=== PATIENT | female | born 1990 | race Hispanic/Latino ===

== ENCOUNTER 2018-10-11 18:23 | Emergency (ER) | payer OTHER ==
[2018-10-11 18:32] VITALS: O2SAT 100
[2018-10-11] MEDS ORDERED: Iohexol 240 (50 ml) PO STA (19:33)
[2018-10-11] MEDS ORDERED: Sodium Chloride 0.9% 1,000 ML IV STA (19:37)
--- NOTE | 2018-10-11 19:59 | ED PDOC ---
- Laboratory Results Result Diagrams: 10/11/18 20:58 10/11/18 20:58 Lab Results: Total Bilirubin 0.3 mg/dl (0.2-1.3) 10/11/18 20:58 AST 22 U/L (14-36) 10/11/18 20:58 ALT 31 U/L (9-52) 10/11/18 20:58 Alkaline Phosphatase 39 U/L (38-126) 10/11/18 20:58 Total Protein 7.6 G/DL (6.3-8.2) 10/11/18 20:58 Albumin 4.5 g/dL (3.5-5.0) 10/11/18 20:58 Globulin 3.1 gm/dL (2.2-3.9) 10/11/18 20:58 Albumin/Globulin Ratio 1.5 (1.0-2.1) 10/11/18 20:58 Amylase 98 U/L (30-110) 10/11/18 20:58 Lipase 59 U/L (23-300) 10/11/18 20:58 Urine Color Colorless (YELLOW) 10/11/18 20:58 Urine Clarity Clear (Clear) 10/11/18 20:58 Urine pH 7.0 (5.0-8.0) 10/11/18 20:58 Ur Specific [place] < 1.005 (1.003-1.030) 10/11/18 20:58 Urine Protein Negative mg/dL (NEGATIVE) 10/11/18 20:58 Urine Glucose (UA) Neg mg/dL (NEGATIVE) 10/11/18 20:58 Urine Ketones Negative mg/dL (NEGATIVE) 10/11/18 20:58 Urine Blood Trace (NEGATIVE) 10/11/18 20:58 Urine Nitrate Negative (NEGATIVE) 10/11/18 20:58 Urine Bilirubin Negative (NEGATIVE) 10/11/18 20:58 Urine Urobilinogen 0.2-1.0 mg/dL (0.2-1.0) 10/11/18 20:58 Ur Leukocyte Esterase Neg [place]/uL (Negative) 10/11/18 20:58 Urine RBC (Auto) 1 /hpf (0-3) 10/11/18 20:58 Urine Microscopic WBC < 1 /hpf (0-5) 10/11/18 20:58 Ur Squamous Epith Cells < 1 /hpf (0-5) 10/11/18 20:58 Urine Bacteria Rare (<OCC) 10/11/18 20:58 <Bentley Rascon - Last Filed: 10/12/18 00:13> - Laboratory Results Result Diagrams: 10/11/18 20:58 10/11/18 20:58 - ECG O2 Sat by Pulse Oximetry: 100 <FelicianoTavares ahumada Deisy - Last Filed: 10/12/18 00:35> Medical Decision Making Medical Decision Makin:04 CT Abd Pelvis FINDINGS: LUNG BASES: 4 mm nodule in the left lower lobe subpleurally on series 2, image 1. Minimal linear atelectasis near the bases. LIVER: Mild diffuse fatty infiltration of liver. GALLBLADDER AND BILE DUCTS: The gallbladder appears within normal limits. No radioopaque gallstones are seen. No biliary ductal dilatation is evident. PANCREAS: Unremarkable. SPLEEN: Unremarkable. ADRENAL GLANDS: Unremarkable. KIDNEYS, URETERS, AND BLADDER: Bladder is distended measuring 12.8 x 10.1 x 10.5 cm but otherwise unremarkable. STOMACH AND BOWEL: Unremarkable appearance of the stomach and bowel. No evidence of bowel obstruction. No evidence suggesting enteritis or colitis. APPENDIX: Normal appendix is present in the right lower quadrant. PERITONEUM: No free fluid. No free air. LYMPH NODES: No lymphadenopathy is evident. REPRODUCTIVE: There is a tampon in the vagina. VASCULATURE: No evidence of abdominal aortic aneurysm. BONES: No aggressive appearing osseous lesion. No acute osseous pathology evident. IMPRESSION: 1. 4 mm nodule in the left lower lobe subpleurally on series 2, image 1. This does not require followup. 2. Mild diffuse fatty infiltration of liver. 3. Bladder is distended measuring 12.8 x 10.1 x 10.5 cm but otherwise unremarkable. Please correlate clinically. 4. Normal appendix is present in the right lower quadrant. 5. Additional and incidental findings as described above. <Bentley Rascon - Last Filed: 10/12/18 00:13> Medical Decision Making: Transfer of care from [place] at 1950pm I have examined the patient and agree with the findings and plan thus far. 2200 - on reevaluation, the patient is stable 0025 - the patient has been briefed on the findings contained in the CT; the patient remains stable and will be discharged with referral to GI as well as to the clinic to establish primary care <Tavares Silva - Last Filed: 10/12/18 00:35> Disposition <Bentley Rascon - Last Filed: 10/12/18 00:13> Counseled Patient/Family Regarding: Studies Performed, Diagnosis, Need For Followup - POA Present On Arrival: None - Disposition Disposition: Routine/Home Disposition Time: 00:32 <Tavaers Silva - Last Filed: 10/12/18 00:35> - Clinical Impression Clinical Impression: Abdominal pain - Disposition Referrals: Tyler Shanks MD [Staff Provider] - [facility] [Outside] [facility] [Outside] Condition: STABLE Instructions: Acute Abdomen (Belly Pain), Acute Abdomen (Belly Pain), Adult (DC) Forms: [facility] (Slovenian)
--- NOTE | 2018-10-11 20:25 | ED PDOC ---
HPI: Abdomen Time Seen by Provider: 10/11/18 19:30 Chief Complaint (Nursing): Abdominal Pain Chief Complaint (Provider): abd pain History Per: Patient History/Exam Limitations: no limitations Onset/Duration Of Symptoms: Days Outside of [place] travel?: No Current Symptoms Are (Timing): Still Present Severity: Mild Pain Scale Rating Of: 4 Location Of Pain/Discomfort: RUQ, Epigastric Quality Of Discomfort: "Pain" Associated Symptoms: Loss Of Appetite, Back Pain. denies: Fever, Chills, Nausea, Vomiting, Diarrhea, Urinary Symptoms Exacerbating Factors: Food Alleviating Factors: None Additional History Per: Patient Additional Complaint(s): 27 y/o female with hx of pancreatitis one yr ago presents to the ed c/o epigastric abd pain rad to left and right upper quad since thursday night. Pt reports "dull"pain to epigastrium for about one month similar to pain felt when she had pancreatitis. She states she was doing well with watching her fatty food and alcohol intake but n thursday she had 4-5 drinks and the pain increased. Today after having chicken noodle soup around 1pm pain became worse which prompted ED visit. Pt denies nausea, vomiting, diarrhea, fever. Pt also reports she did not have any of these symptoms when she was dx with pancreatitis in the past. Abnormal Vaginal Bleeding: No Past Medical History Reviewed: Historical Data, Nursing Documentation, Vital Signs Vital Signs: Last Vital Signs Temp 98 F 10/11/18 18:29 Pulse 84 10/11/18 18:29 Resp 16 10/11/18 18:29 BP 116/79 10/11/18 18:29 Pulse Ox 100 10/11/18 19:59 - Medical History PMH: Pancreatitis - Surgical History Surgical History: Tonsillectomy - Family History Family History: States: Unknown Family Hx - Social History Alcohol: Occasional Drugs: Denies - Allergies Allergies/Adverse Reactions: Allergies Allergy/AdvReac Type Severity Reaction Status Date / Time No Known Allergies Allergy Verified 10/11/18 18:29 Review of Systems ROS Statement: Except As Marked, All Systems Reviewed And Found Negative Constitutional: Negative for: Fever, Chills, Sweats, Weakness Eyes: Negative for: Pain, Vision Change, Conjunctivae Inflammation, Eyelid Inflammation, Redness, Other ENT: Negative for: Ear Pain, Ear Discharge, Nose Pain, Nose Discharge, Nose Congestion, Mouth Pain, Mouth Swelling, Throat Pain, Throat Swelling Cardiovascular: Negative for: Chest Pain, Palpitations Respiratory: Negative for: Cough, Shortness of Breath, SOB with Exertion Gastrointestinal: Positive for: Abdominal Pain (epigastric, ruq, luq worse with food intake, gradually worsening after eating). Negative for: Nausea, Vomiting Genitourinary Female: Negative for: Dysuria Skin: Negative for: Rash Neurological: Negative for: Weakness Physical Exam - Reviewed Nursing Documentation Reviewed: Yes Vital Signs Reviewed: Yes - Physical Exam Appears: Positive for: Well, Non-toxic, No Acute Distress Head Exam: Positive for: ATRAUMATIC, NORMAL INSPECTION, NORMOCEPHALIC Skin: Positive for: Normal Color, Warm, DRY Eye Exam: Positive for: EOMI, Normal appearance, PERRL ENT: Positive for: Normal ENT Inspection Neck: Positive for: Normal, Painless ROM Cardiovascular/Chest: Positive for: Regular Rate, Rhythm Respiratory: Positive for: CNT, Normal Breath Sounds Pulses-Radial (L): 2+ Pulses-Radial (R): 2+ Gastrointestinal/Abdominal: Positive for: Normal Exam, Bowel Sounds (normoactive ), Soft, Tenderness (right upper quadrant, right lower quadrant point tenderness. pt reports rlq palpation is worse than right upper quadrant.). Negative for: Mass, Distended Back: Positive for: Normal Inspection. Negative for: L CVA Tenderness, R CVA Tenderness Extremity: Positive for: Normal ROM Neurological/Psych: Positive for: Awake, Alert, Normal Tone, Oriented - ECG O2 Sat by Pulse Oximetry: 100 - Progress ED Course And Treament: CBC CMP UA LIPASE AMYLASE UPREG 0.9NS [address] ABD/PELVIS 1954: PT ENDORSED TO TAVARES SILVA PA-C TO FOLLOW UP ON LABS AND CT SCAN RESULTS. Disposition - Clinical Impression Clinical Impression: Abdominal pain - Disposition Disposition: Transfer of Care Disposition Time: 19:55 Condition: FAIR Forms: [employer] (Togolese) Patient Signed Over To: Tavares Silva Handoff Comments: PENDING LABS AND CT ABD/ PELVIS - POA Present On Arrival: None
[2018-10-11] MEDS ORDERED: Iohexol 240 (50 ml) ONE (20:33)
[2018-10-11 21:04] LABS: SQUAMOUS EPITHIAL < 1 /hpf (0-5); URINE BACTERIA RARE (<OCC); URINE BILIRUBIN NEGATIVE (NEGATIVE); URINE CLARITY CLEAR (Clear); URINE COLOR COLORLESS (YELLOW); URINE GLUCOSE (UA) NEG (NEGATIVE); URINE LEUKOCYTE ESTERASE NEG Leu/uL (Negative); URINE PROTEIN NEGATIVE (NEGATIVE); URINE UROBILINOGEN 0.2-1.0 mg/dL (0.2-1.0)
[2018-10-11 21:05] LABS: BASO # 0.1 K/uL (0.0-0.2); BASO % 1.3 % (0.0-2.0); EOS # 0.2 K/uL (0.0-0.7); EOS % 3.7 % (0.0-4.0); LYMPH # 2.6 K/uL (1.0-4.3); LYMPH % 40.5 % (20.0-40.0); MEAN CELL VOLUME 89.7 fl (81.0-99.0); MEAN CORPUSCULAR HEMOGLOBIN 29.8 pg (27.0-31.0); MEAN CORPUSCULAR HGB CONC 33.3 g/dL (33.0-37.0); MEAN PLATELET VOLUME 8.4 fl (7.2-11.7); MONO # 0.5 K/uL (0.0-0.8); MONO % 7.5 % (0.0-10.0); RBC 4.37 Mil/uL (3.80-5.20); RED CELL DISTRIBUTION WIDTH 12.8 % (11.5-14.5); WHITE BLOOD COUNT 6.4 K/uL (4.8-10.8)
[2018-10-11 21:09] LABS: URINE BLOOD TRACE (NEGATIVE)
[2018-10-11 21:15] LABS: ALB/GLOB RATIO 1.5 (1.0-2.1); ALBUMIN 4.5 g/dL (3.5-5.0); ALT/SGPT 31 U/L (9-52); AMYLASE 98 U/L (30-110); AST/SGOT 22 U/L (14-36); BLOOD UREA NITROGEN 13 mg/dl (7-17); CALCIUM 9.2 mg/dL (8.4-10.2); GFR NON-AFRICAN AMERICAN > 60; LIPASE 59 U/L (23-300)
[2018-10-11] MEDS ORDERED: Iohexol 300 100 ML IJ ONE (22:58)
[2018-10-11] MEDS ORDERED: Sodium Chloride 0.9% 50 ML IV ONE (22:59)
[2018-10-12 01:09] VITALS: BP 110/60; PULSE 80; RESP 18; TEMP 98.8
--- NOTE | 2018-10-12 12:12 | CT ---
Date of service: 10/11/2018 PROCEDURE: CT Abdomen and Pelvis with contrast HISTORY: Right lower quadrant abdominal pain. COMPARISON: None. TECHNIQUE: Intravenous contrast dose: 90 cc Omnipaque 300. Radiation dose: Total exam DLP = 47.28 mGy-cm. This CT exam was performed using one or more of the following dose reduction techniques: Automated exposure control, adjustment of the mA and/or kV according to patient size, and/or use of iterative reconstruction technique. FINDINGS: LOWER THORAX: 4 mm pulmonary nodule lateral segment left lower lobe. LIVER: Unremarkable. No gross lesion or ductal dilatation. GALLBLADDER AND BILE DUCTS: Unremarkable. PANCREAS: Unremarkable. No gross lesion or ductal dilatation. SPLEEN: Unremarkable. ADRENALS: Unremarkable. No mass. KIDNEYS AND URETERS: Unremarkable. No hydronephrosis. No solid mass. VASCULATURE: Unremarkable. No aortic aneurysm. No atherosclerotic calcification or mural plaque present. BOWEL: Unremarkable. No obstruction. No gross mural thickening. APPENDIX: A normal appendix is visualized in it's entirety. PERITONEUM: Trace free fluid identified in the pelvis/cul de sac. No free air. LYMPH NODES: Unremarkable. No enlarged lymph nodes. BLADDER: Unremarkable. REPRODUCTIVE: Unremarkable. BONES: No acute fracture. OTHER FINDINGS: Tampon noted in the vagina. IMPRESSION: No acute findings related to/ accounting for the clinical presentation. Additional benign and/or incidental findings described above. Concordant results (preliminary interpretation) provided by [employer]. Procedure Completed: 23:05. Preliminary Report: Interpreted and electronically signed: 00:04. Final Interpretation: 12:07. October 12, 2018
== END 2018-10-12 00:48 | disposition home or self-care (01) ==
LOC: H.ER 18:23
DX: R10.9 Unspecified abdominal pain (principal)
CPT/HCPCS: 74177; 80053; 81003; 81025; 82150; 83690; 85025; 96361; 96374; 96375; 99283; J1885; J7030; Q9966; Q9967